=== PATIENT | female | born 1950 | race Caucasian/White ===

== ENCOUNTER 2018-12-30 18:23 | Emergency (ER) | payer MEDICARE, OTHER ==
[~2018-12-30] VITALS: Ht 165.1 cm; Wt 54.4 kg
[2018-12-30] MEDS ORDERED: KEFLEX500 MG PO (19:45)
== END 2018-12-30 20:00 | disposition home or self-care (01) ==
LOC: ED 18:23
PROC: 3E0T3BZ Introduction of Anesthetic Agent into Peripheral Nerves and Plexi, Percutaneous Approach (ICD-10-PCS; principal; 2018-12-30)
DX: S60.352A Superficial foreign body of left thumb, initial encounter (principal); W45.8XXA Other foreign body or object entering through skin, initial encounter; Z23 Encounter for immunization
CPT/HCPCS: 64450; 90471; 90715; 99283-25